=== PATIENT | female | born 1985 | race Caucasian/White ===

== ENCOUNTER 2022-09-22 13:13 | Outpatient (CLI) | payer OTHER ==
[2022-09-22 15:17] VITALS: BP 135/77; PULSE 89; RESP 16; TEMP 98
--- NOTE | 2022-09-24 03:22 | P.MSEPDOC ---
Presenting Problems - Arrival Data Date of Arrival on Unit: 09/22/22 Time of Arrival on Unit: 13:13 Mode of Transport: Ambulatory - Complaint OB-Reason for Admission/Chief Complaint: Decreased Movement Comment: feeling some movement at home but less than 10 kicks, called office and told to come to triage Medical History - Information : 1 Para: 0 Term: 0 : 0 Abortions: Spontaneous or Elective: 0 Number of Living Children: 0 - Gestational Age Gestational Age by SHEILA (wks/days): 38 Weeks and 3 Days Review of Systems - Review of Systems Constitutional: No problems Breast: No problems ENT: No problems Cardiovascular: No problems Respiratory: No problems Gastrointestinal: No problems Genitourinary: No problems Musculoskeletal: No problems Neurological: No problems Skin: No problems Vital Signs - Temperature Temperature: 98 F Temperature Source: Oral - Pulse Right Pulse Rate: 89 Pulse Assessment Method: Automatic Cuff - Respirations Respiratory Rate: 16 Oxygen Delivery Method: Room Air O2 Sat by Pulse Oximetry: 98 - Blood Pressure Right Arm Sitting Blood Pressure: 135/77 Blood Pressure Mean: 96 Blood Pressure Source: Automatic Cuff Medical Screen Scoring - Assessment - Baby A Baseline FHR: 130 Heart Rate - NICHD Category: Category I (Normal) NST: Reactive Physician Notification - Physician Notified Physician Notified Date: 09/22/22 Physician Notified Time: 14:23 Physician: Pearl Travis Order Received: Yes (d/c with instruction) - Notification Comment Comment: pt feeling good movement, reactive nst Maternal Triage Index - Non-Urgent/Priority 4 Non-Urgent Priority 4: Yes Criteria Met for Priority 4: 38.3 Decreased movement Disposition - Disposition OB Disposition: Triage, Discharge to home, Written follow up instructions reviewed Discharge Date: 09/22/22 Discharge Time: 14:25 I agree with the RN Medical Screening Exam: Yes Case reviewed; plan agreed upon as documented in EMR&OBIX.: Yes Diagnosis: DECREASED MOVEMENTS, THIRD TRIMESTER, UNSP
== END 2022-09-22 14:25 | disposition home or self-care (01) ==
LOC: FBPOP 13:13
PROVIDERS: ATTEND Obstetrics & Gynecology
DX: O36.8131 Decreased fetal movements, third trimester, fetus 1 (principal); Z3A.38 38 weeks gestation of pregnancy
CPT/HCPCS: 59025; 99213

== ENCOUNTER 2022-10-09 10:20 | Inpatient (IN) | payer OTHER ==
[2022-10-09] MEDS ORDERED: METHYLERGONOVINE 0.2 MG/ML 1 ML AMP IM PRN (11:18)
[2022-10-09] MEDS ORDERED: LIDOCAINE 0.5% (PF) 5 MG/ML (50 ML SDV) SQ PRN (11:18)
[2022-10-09] MEDS ORDERED: CARBOPROST TROMETHAMINE 250 MCG/ML 1 ML AMP IM PRN (11:18)
[2022-10-09] MEDS ORDERED: TRANEXAMIC ACID IN NACL,ISO-OS 1,000 MG in EMPTY BAG 1 BAG IV PRN (11:18)
[2022-10-09] MEDS ORDERED: OXYTOCIN 10 UNIT/ML 1 ML VIAL IM PRN (11:18)
[2022-10-09] MEDS ORDERED: miSOPROStoL 200 MCG TAB PO PRN (11:18)
[2022-10-09] MEDS ORDERED: TERBUTALINE 1 MG/ML VIAL SQ PRN (11:18)
[2022-10-09] MEDS: LACTATED RINGERS 1,000 ML IV SCH ×3 (11:35→19:47)
[2022-10-09] MEDS ORDERED: OXYTOCIN 30 UNITS/500 ML NS 30 UNIT in SALINE 1 500ML.BAG IV SCH (12:30)
[2022-10-09 12:58] LABS: Basophils # (A) 0.1 k/uL (0-0.2); Basophils % (A) 0 %; Eosinophils # (A) 0.2 k/uL (0-0.7); Eosinophils % (A) 1 %; HGB 13.2 gm/dL (11.4-16.0); Lymphocytes # (A) 1.6 k/uL (1.0-4.8); Lymphocytes % (A) 10 %; MCH 31.7 pg (25.0-35.0); MCHC 33.8 g/dL (31.0-37.0); MCV 93.7 fL (80.0-100.0); Mean Platelet Volume 8.4; Monocytes # (A) 0.5 k/uL (0-1.0); Monocytes % (A) 3 %; Neutrophils # (A) 13.1 k/uL (1.3-7.7); Neutrophils % (A) 84 %; Platelet Count 250 k/uL (150-450); RBC 4.17 m/uL (3.80-5.40); RDW 14.1 % (11.5-15.5); WBC 15.6 k/uL (3.8-10.6)
--- NOTE | 2022-10-09 13:26 | P.HPOB ---
History of Present Illness H&P Date: 10/09/22 Chief Complaint: Strong, regular uterine contractions This is a 37-year-old white female 1 para 0 EDC 10/03/2022 at 40-6/7 weeks' gestation who presents from home with strong regular uterine contractions. Fetus is been active throughout the . She denies va ginal bleeding or fluid leakage. Past surgical history is negative. Past medical history is negative. Current medications multivitamin daily, [place] supplement daily, vitamin D daily. ALLERGIES none known. Family history significant for hypertension, stroke, breast cancer, brain aneurysm. Social history patient is , her Castillo is present. 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 She denies tobacco or alcohol use. history is significant for blood type A+, rubella status immune. VDRL testing, hepatitis B surface antigen, gonorrhea and chlamydia cultures, group B strep cultures, HIV testing all negative. One-hour Glucola 102. On exam patient is 5 foot 7 inches, 210 pounds, vital signs are stable and she is afebrile. The general physical exam is within normal limits. Cervix on admission was 6 cm dilated, now is 8-9 cm dilated, 80% effaced, -2 station, vertex presentation. heart rate is consistent with reactive NST with frequent accelerations. Oxytocin has been started, contractions are occurring approximately every 4 minutes apart. Artificial amniorrhexis reveals light meconium-stained fluid. Impression: 40-6/7 weeks intrauterine , light meconium-stained fluid, active labor. Advanced maternal age. All signs reassuring. Plan: Continue close maternal and surveillance. Analgesic options reviewed. Anticipate normal spontaneous vaginal delivery. Review of Systems Negative except for as in HPI Past Medical History Past Medical History: No Reported History History of Any Multi-Drug Resistant Organisms: None Reported Past Surgical History: No Surgical Hx Reported Past Anesthesia/Blood Transfusion Reactions: No Reported Reaction Past Psychological History: No Psychological Hx Reported Smoking Status: Never smoker Past Alcohol Use History: None Reported Past Drug Use History: None Reported - Past Family History Father Family Medical History: Cancer Additional Family Medical History / Comment(s): colon cancer Medications and Allergies Home Medications Medication Instructions Recorded Confirmed Type Vit No.179/Iron/Folic 1 tab PO DAILY 10/09/22 10/09/22 History [ Tablet] Allergies Allergy/AdvReac Type Severity Reaction Status Date / Time No Known Allergies Allergy Verified 10/09/22 10:32 Exam Vital Signs Temp Pulse Resp BP 10/09/22 12:03 97.7 F 88 18 132/75 Intake and Output 10/08/22 10/09/22 10/09/22 22:59 06:59 14:59 Other: Weight 99.337 kg See dictation under HPI Results Result Diagrams: 10/09/22 11:35 Abnormal Lab Results - Last 24 Hours (Table) 10/09/22 Range/Units 11:35 WBC 15.6 H (3.8-10.6) k/uL Neutrophils # 13.1 H (1.3-7.7) k/uL Assessment and Plan Assessment: 40-6/7 weeks intrauterine , advanced maternal age, light meconium- stained fluid, active labor. All signs reassuring. Plan: Continue close maternal and surveillance. Analgesic options reviewed. Anticipate normal spontaneous vaginal delivery. Time with Patient: Less than 30
[2022-10-09] MEDS ORDERED: SODIUM CHLORIDE 0.9% 100 ML BAG ONE (14:50)
[2022-10-09] MEDS ORDERED: fentaNYL (PF) 50 MCG/ML 5 ML AMP ONE (14:50)
[2022-10-09] MEDS ORDERED: ROPIVACAINE 5 MG/ML 20 ML AMPULE ONE (14:50)
[2022-10-09] MEDS ORDERED: HYDROCORTISONE 2.5% RECTAL CREAM 30 GM TUBE RECTAL PRN (19:29)
[2022-10-09] MEDS ORDERED: SIMETHICONE 80 MG CHEWABLE PO PRN (19:29)
[2022-10-09] MEDS ORDERED: diphenhydrAMINE 25 MG CAP PO PRN (19:29)
[2022-10-09] MEDS ORDERED: ZOLPIDEM 5 MG TAB PO PRN (19:29)
[2022-10-09] MEDS ORDERED: diphenhydrAMINE 50 MG CAP PO PRN (19:29)
[2022-10-09] MEDS ORDERED: BENZOCAINE/MENTHOL SPRAY 1 GM/SPRAY AEROSOL TOPICAL PRN (19:29)
[2022-10-09] MEDS ORDERED: diphenhydrAMINE ELIXIR 25 MG/10 ML CUP PO PRN (19:29)
[2022-10-09] MEDS ORDERED: diphenhydrAMINE 50 MG/ML 1 ML VIAL IVP PRN ×2 (19:29)
[2022-10-09] MEDS ORDERED: LANOLIN CREAM 5 GM TUBE TOPICAL PRN (19:29)
--- NOTE | 2022-10-09 19:29 | P.PROBDLV ---
Vaginal Delivery Note - . Vaginal Delivery Note: This is a 37-year-old female 1 para 0 EDC 10/03/2022 at 40-6/7 weeks' gestation who presented earlier today in spontaneous active labor. is remarkable for blood type A+, rubella status immune, group B strep cultures negative. Please see dictated history and physical for details. Artificial amniorrhexis revealed light meconium-stained fluid. Oxytocin was started and titrated per. Epidural was placed per her request. Patient progressed well through the first stage of labor was judged to be completely dilated at 1813 hrs. and began the second stage of labor at that time. With excellent maternal expulsive efforts ultimately the 's head crowned. Perineal body was prepped and draped in usual sterile fashion. Infant delivered occiput anterior and restituted accordingly. There was no nuchal cord noted. The right or anterior shoulder delivered easily from underneath the pubic symphysis at which time the oropharynx, nasopharynx, and external nares were all bulb suctioned. Patient was officially delivered of a liveborn female at 1905 hrs. Umbilical cord was doubly clamped and ligated, she was handed to waiting nurses for evaluation where scores of 9 and 9 at one and 5 minutes respectively were the placenta delivered spontaneously, it was inspected and noted to be lightly meconium stained with trivascular cord at 1905 hrs. At this time careful inspection of the cervix, vagina, perineum, periurethral, and perirectal areas revealed a small first-degree perineal laceration. This was repaired in the usual sterile fashion using repeat suture. All sponge needle and enhancement counts are correct. Bleeding was initially slightly brisk, Methergine was given IM with excellent results. Total estimated blood loss 250 mL's. weighed 4185 g or 9 lbs. 3 oz. Patient and her family are allowed to begin the bonding experience in the LDR.
[2022-10-09] MEDS: IBUPROFEN 600 MG TAB PO SCH (19:46)
[2022-10-09] MEDS: ACETAMINOPHEN TAB 325 MG TAB PO PRN (23:06)
[2022-10-10] MEDS: IBUPROFEN 600 MG TAB PO SCH ×4 (03:45→21:53)
[2022-10-10] MEDS: SENNOSIDES-DOCUSATE SODIUM 1 EACH TAB PO SCH ×3 (04:46→20:26)
[2022-10-10] MEDS: ACETAMINOPHEN TAB 325 MG TAB PO PRN ×2 (06:43→13:31)
--- NOTE | 2022-10-10 07:59 | P.DS ---
Providers Date of admission: 10/09/22 11:43 Expected date of discharge: 10/10/22 Attending physician: Pearl Travis Primary care physician: Stated None Hospital Course: This is a 37-year-old female 1 para 0 who presented at 40-6/7 weeks in spontaneous labor. Fetus is been active throughout the , group B strep cultures negative, rubella status immune, blood type A positive. Please see dictated history and physical for details. Patient spontaneously delivered a liveborn female with scores of 9 and 9 at one and 5 minutes respectively. There was a small first-degree perineal laceration easily repaired. weighed 9 lbs. 3 oz. or 4185 g. Please see dictated delivery note for details. Estimated blood loss 250 mL's. This morning the patient is doing well. She is voiding, ambulating, passing fla tus without difficulty. Vital signs are stable and she is afebrile. Fundus is firm and in the midline, symmetric and 18 week size. Extremities reveal no edema. Breast-feeding is going well. Mason is thriving, and judged to be in very good condition for discharge home. The patient is in very good condition as well. Patient will follow-up with me in the office in 6 weeks. I have reminded her no intercourse, tampons or douching. She will use [id number] Advil or Aleve, or Motrin as needed for pain. She will call with any fevers shakes or chills, foul smelling or copious lochia, with the passage of large blood clots, with any pain not alleviated by [id number] products, or indeed with any concerns. We have discussed options for contraception and these will be discussed again in the office. Assessment: Doing well first day Patient Condition at Discharge: Good Plan - Discharge Summary Discharge Rx Participant: No New Discharge Prescriptions: No Action Vit No.179/Iron/Folic [ Tablet] 1 tab PO DAILY Discharge Medication List Vit No.179/Iron/Folic [ Tablet] 1 tab PO DAILY 10/09/22 [History] Follow up Appointment(s)/Referral(s): Pearl Travis MD [STAFF PHYSICIAN] - 6 Weeks Discharge Disposition: HOME SELF-CARE
--- NOTE | 2022-10-10 08:03 | P.MSEPDOC ---
Presenting Problems - Arrival Data Date of Arrival on Unit: 10/09/22 Time of Arrival on Unit: 10:20 Mode of Transport: Ambulatory - Complaint OB-Reason for Admission/Chief Complaint: Possible Onset of Labor Comment: pt presented to triage for possible labor starting around 0300 this am with contractions getting stronger and more regular Medical History - Information : 1 Para: 0 Term: 0 : 0 Abortions: Spontaneous or Elective: 0 Number of Living Children: 0 - Gestational Age Gestational Age by SHEILA (wks/days): 40 Weeks and 6 Days Review of Systems - Review of Systems Constitutional: No problems Breast: No problems ENT: No problems Cardiovascular: No problems Respiratory: No problems Gastrointestinal: No problems Genitourinary: No problems Musculoskeletal: No problems Neurological: No problems Skin: No problems Vital Signs - Temperature Temperature: 97.7 F Temperature Source: Axillary - Pulse Right Brachial Pulse Rate: 76 Pulse Assessment Method: Automatic Cuff - Respirations Respiratory Rate: 16 Oxygen Delivery Method: Room Air - Blood Pressure Right Arm Blood Pressure: 116/68 Blood Pressure Mean: 84 Blood Pressure Source: Automatic Cuff Medical Screen Scoring - Cervical Exam Dilation (cm): 5.0 Effacement (%): 90 Station: -2 Membranes: Intact - Uterine Contractions Frequency From (mins): 5 Frequency To (mins): 6 Duration From (seconds): 50 Duration To (seconds): 160 Intensity: Moderate Resting: Soft to palpation - Assessment - Baby A Baseline FHR: 140 Heart Rate - NICHD Category: Category I (Normal) NST: Reactive Physician Notification - Physician Notified Physician Notified Date: 10/09/22 Physician Notified Time: 11:05 Physician: Pearl Travis Order Received: Yes - Notification Comment Comment: pt admitted for labor Maternal Triage Index - Maternal Triage Index Presenting for scheduled procedure w/no complaint: No - Stat/Priority 1 Stat Priority 1: No - Urgent/Priority 2 Urgent Priority 2: No - Prompt/Priority 3 Prompt Priority 3: Yes Criteria Met for Priority 3: pt presented to triage for possible labor starting around 0300 this am with contractions getting stronger and more regular Disposition - Disposition OB Disposition: Admit, LDRP Suite I agree with the RN Medical Screening Exam: Yes Case reviewed; plan agreed upon as documented in EMR&OBIX.: Yes Diagnosis: LOUSE-BORNE TYPHUS
[2022-10-10] MEDS: LACTATED RINGERS 1,000 ML IV SCH (13:29)
[2022-10-10 23:54] VITALS: PULSE 80
[2022-10-11] MEDS: IBUPROFEN 600 MG TAB PO SCH ×2 (03:41→11:16)
[2022-10-11] MEDS: SENNOSIDES-DOCUSATE SODIUM 1 EACH TAB PO SCH (08:04)
[2022-10-11 08:15] VITALS: BP 118/76; RESP 18; TEMP 97.8
== END 2022-10-11 12:50 | disposition home or self-care (01) | DRG 807 ==
LOC: FBPOP 10:20 → 4FBP 11:43
PROVIDERS: ADMIT Obstetrics & Gynecology; ATTEND Obstetrics & Gynecology
PROC: 0HQ9XZZ Repair Perineum Skin, External Approach (ICD-10-PCS; principal; 2022-10-09)
PROC: 10907ZC Drainage of Amniotic Fluid, Therapeutic from Products of Conception, Via Natural or Artificial Opening (ICD-10-PCS; principal; 2022-10-09)
PROC: 10E0XZZ Delivery of Products of Conception, External Approach (ICD-10-PCS; principal; 2022-10-09)
DX: O48.0 Post-term pregnancy (principal); O77.0 Labor and delivery complicated by meconium in amniotic fluid; O70.0 First degree perineal laceration during delivery; Z3A.40 40 weeks gestation of pregnancy; Z37.0 Single live birth
CPT/HCPCS: 59025; 84112; 85025; 86850; 86900; 86901; 99213